=== PATIENT | female | born 2000 | race Caucasian/White ===

== ENCOUNTER 2022-08-15 11:39 | Outpatient (CLI) | payer MEDICAID, SELFPAY ==
--- NOTE | ~2022-08-15 | US_ITS ---
US breast RT limited DATE: 08/15/2022 12:39 INDICATION: Right breast lump TECHNIQUE: Real-time imaging and color flow imaging targeted at right breast lump at 8:00 2 cm from n ipple COMPARISON: None FINDINGS: There is a parallel circumscribed hypoechoic solid lesion with peanut-shaped configuration, measuring up to approximately 1.47 x 2.9 cm maximal dimension, with no internal vascularity, with th rough transmission posterior enhancement, most consistent with benign fibroadenoma. IMPRESSION: Approximately 1.5 x 2.9 cm benign-appearing fibroadenoma at 8:00 2 cm from nipple BI-RADS Category 2: Benign finding Reviewed, dictated and finalized at Location [facility]. Reviewed, dictated and finalized at location A. 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
== END 2022-08-15 11:40 | disposition home or self-care (01) ==
LOC: ANHIMG 11:45
PROVIDERS: Visit Provider Advanced Practice Midwife
DX: N63.10 Unspecified lump in the right breast, unspecified quadrant (principal)
CPT/HCPCS: 76642

== ENCOUNTER 2022-12-09 11:12 | Outpatient (CLI) | payer OTHER, SELFPAY ==
--- NOTE | 2022-12-09 11:55 | PC.NURSE ---
Santos Romo notified that ROM plus is negative. OK to dc home with labor precautions and keep IOL date for Mon.
[2022-12-09 12:27] VITALS: BP 127/78; PULSE 105
== END 2022-12-09 11:55 | disposition home or self-care (01) ==
LOC: ANHOBOP 11:48
PROVIDERS: PCP Advanced Practice Midwife; Visit Provider Obstetrics & Gynecology
DX: O42.90 Premature rupture of membranes, unspecified as to length of time between rupture and onset of labor, unspecified weeks of gestation (principal); Z3A.00 Weeks of gestation of pregnancy not specified
CPT/HCPCS: 59025; 84112

== ENCOUNTER 2022-12-11 16:57 | Inpatient (IN) | payer OTHER, SELFPAY ==
[2022-12-11] VITALS (16 sets, daily range): BP systolic 100–135; BP diastolic 54–87; PULSE 82–113
--- NOTE | 2022-12-11 16:57 | LDADM ---
This patient, Corazon Go, was admitted to Labor/Delivery/Recovery 103 on 12/11/22 at 16:57. Plans for labor, pain management and were discussed with patient. Patient/family oriented to hospital policies and general routines including ID bracelet, bed and alarms, visiting hours, pain management, procedures, bathroom and other care routines, personal items, smoking policy, room service/diet and guest tray routines, security routines, and visiting hours. Patient/Family are encouraged to report perceived risks to care and to ask questions if they do not understand what they are told or what they should do. See OBIX for further documentation.
--- NOTE | 2022-12-11 17:33 | WPDANESEPP ---
Anes - Eval Pre Procedure Procedure: labor epidural Date/Time: 12/11/22 17:33 Pre Op Diagnosis: IOL Patient Data Age: 22 Gender: F Height: Weight: Allergies Allergy/AdvReac Type Severity Reaction Status Date / Time No Known Allergies Allergy Verified 11/11/22 12:39 Home Medications Medication Instructions Recorded Confirmed Type prenat.vits,tiny,ljg-roep-xujan 1 tablet PO DAILY 11/11/22 11/11/22 History Patient hx anesthesia problems: none Family hx anesthesia problems: none Results Review: All pre-operative results and documents have been reviewed as part of the pre-operative evaluation. [facility] Family History Family History Other Patient denies significant medical history Social History Social History Substance use: never Spiritual care concerns: No Exam Day of Procedure 12/11/22 17:33 Patient weight: overweight Heart: regular rate and rhythm Lungs: clear to auscultation Airway: Mallampati scale Neurological: alert and oriented
[2022-12-11 18:27] LABS: Basophils Absolute Auto 0.1 K/mm3 (0.0-0.1); Basophils Percent Auto 0.6 % (0.2-1.2); Eosinophils Absolute Auto 0.1 K/mm3 (0-0.3); Eosinophils Percent Auto 0.9 % (0-4.4); Hemoglobin 10.2 g/dL (12.0-15.0); Immature Granulocyte Absolute 0.54 K/mm3 (0.00-0.031); Immature Granulocyte Percent A 4.3 % (0-0.5); Lymphocytes Absolute Auto 2.31 K/mm3 (0.9-3.2); Lymphocytes Percent Auto 18.2 % (18.3-44.2); Mean Corpuscular HGB Conc 31.9 g/dl (32-36); Mean Corpuscular Hemoglobin 25.8 pg (26-34); Mean Platelet Volume 11.2 fl (7.4-10.4); Monocytes Percent Auto 7.6 % (2.6-8.5); Neutrophils Absolute Auto 8.7 K/mm3 (1.3-6.7); Neutrophils Percent Auto 68.4 % (45.5-73.1); Platelet Count Result 195 k/mm3 (150-375); Red Blood Count 3.95 M/mm3 (4.2-5.4); Red Cell Distribution Width 13.5 % (11.5-14.5); White Blood Count 12.7 K/mm3 (4.5-10.0)
[2022-12-11] MEDS: CALCIUM CARBONATE (TUMS) 500 MG (200 MG ELEMENTAL) PO ×2 (18:29→23:22)
[2022-12-11] MEDS: ONDANSETRON INJ 4 MG/2 ML VIAL IV PUSH (18:30)
[2022-12-11] MEDS: DINOPROSTONE 10 MG VAG INSERT VAGINAL (19:45)
[2022-12-12] VITALS (239 sets, daily range): BP systolic 73–207; BP diastolic 37–181; PULSE 42–241; RESP 18; TEMP 36.2–36.9; O2SAT 86–100; BMI 33.0
[2022-12-12] MEDS: ACETAMINOPHEN 325 MG TABLET PO (05:28)
--- NOTE | 2022-12-12 05:39 | OBADM ---
This patient, Corazon Go, admitted to the OB room Labor/Delivery/Recovery 103 for observation. Patient/family oriented to hospital policies and general routines including ID bracelet, bed and alarms, visiting hours, pain management, procedures, bathroom and other care routines, personal items, smoking policy, room service/diet, and visiting hours. Patient/Family are encouraged to report perceived risks to care and to ask questions if they do not understand what they are told or what they should do.
--- NOTE | 2022-12-12 07:34 | WPDOBADMIT ---
Obstetrics - Admit Note Admission Note: record reviewed. No pertinent additions to the history and/or any subsequent changes in the physical findings that are not consistent with the expected course of the were found. IOL, SVE 1.5/80/-2 AROM , moderate amount of clear, odorless fluid, IUPC placed, anticipate vaginal delivery Additions to the history and/or subsequent changes in the physical findings follow. None.
[2022-12-12] MEDS: LACTATED RINGERS 1,000 ML 125 ML IV CONT ×2 (07:50→09:07)
[2022-12-12] MEDS: SODIUM CHLORIDE 0.9% IV 300 ML 600 ML I-UTERINE (09:42)
[2022-12-12] MEDS: SODIUM CHLORIDE 0.9% IV 1,000 ML 150 ML I-UTERINE (10:12)
[2022-12-12] MEDS: ONDANSETRON INJ 4 MG/2 ML VIAL IV PUSH (10:51)
[2022-12-12 13:15] LABS: Rapid Plasma Reagin Non-Reactive (NonReactive)
[2022-12-12] MEDS: CALCIUM CARBONATE (TUMS) 500 MG (200 MG ELEMENTAL) PO (15:00)
[2022-12-12] MEDS: diphenhydrAMINE HCl INJ 50 MG/ML VIAL 25 MG IV PUSH (16:18)
[2022-12-12] MEDS: OXYTOCIN 30 UNITS/NS 500 ML 30 UNITS/500 ML BAG IV CONT (17:40)
--- NOTE | 2022-12-12 20:36 | P.PCNOB_ITS ---
OB - Delivery Note Procedure Delivery date: 12/12/22 Procedure: vaginal delivery Induction method: AROM, Per Pitocin Protocol and Per Cervidil Protocol Route of delivery: Laceration Description: Superficial Delivery repair: vicryl (on perineum) Specimen: No Quantitative Blood Loss (ml): 350 Anesthesia type: Epidural Disposition: Floor [place] Baby Date of : 12/12/22 Time of : 20:23 Weeks of gestation at delivery: 40 Infant gender: Male presentation: vertex position: Left Occiput Anterior Placenta delivery description: Spontaneous Cord Vessel Description: 3 Vessels, Clamped/Cut and Delayed Cord Clamping Narrative: mother and baby skin to skin in stable condition
[2022-12-12] MEDS: OXYTOCIN 30 UNITS/NS 500 ML 30 UNITS/500 ML BAG 125 UNITS IV CONT (21:01)
[2022-12-12] MEDS: WITCH HAZEL 40 PADS 1 PAD TOPICAL (22:24)
[2022-12-12] MEDS: BENZOCAINE 20% AER SPR (*SP) 56 GM CAN 1 SPRAY TOPICAL (22:24)
--- NOTE | 2022-12-12 22:48 | PC.NURSE ---
Patient transferred to post room # 282 via ( W/C ). Support person present. Oriented to unit, room, information board, rooming in, admission packet and security measures. Patient verbalizes understanding.
[2022-12-12] MEDS: IBUPROFEN 600 MG TABLET PO (23:07)
[2022-12-13] MEDS: ACETAMINOPHEN 325 MG TABLET 650 MG PO ×2 (04:34→13:41)
[2022-12-13 05:10] VITALS: BP 130/82; PULSE 115; RESP 16; TEMP 36.8; O2SAT 98
[2022-12-13 07:27] LABS: Hematocrit 28.8 % (37.0-47.0); Hemoglobin 8.9 g/dL (12.0-15.0)
[2022-12-13 07:40] VITALS: BP 115/80; PULSE 99; RESP 18; TEMP 36.6; O2SAT 99
--- NOTE | 2022-12-13 07:58 | WPDANLDPN2 ---
Anes-Prog Note L&D Date/Time: 12/13/22 07:58 Neuro status: Neuro function grossly intact. Vital Signs: Last Vital Signs Temp 36.8 C 12/13/22 05:10 Pulse 115 H 12/13/22 05:10 Resp 16 12/13/22 05:10 BP 130/82 12/13/22 05:10 Pulse Ox 98 12/13/22 05:10 O2 Del Method Room Air 12/12/22 23:13 Pain score (VAS): 0 I/O: Intake & Output 12/12/22 12/12/22 12/13/22 15:59 23:59 07:59 Intake Total 1000 500 Output Total 350 Balance 1000 150 Patient feedback: Patient satisfied with anesthetic care.
--- NOTE | 2022-12-13 08:39 | PM.OBPNVD ---
OB - PN: Subj Subjective Date/time seen: 12/13/22 08:39 Patient comments: no complaints, pain well controlled, incisional pain, tolerating diet and flatus present OB - PN: Obj Data Labs 12/13/22 07:18 Labs: Laboratory Results - last 24 hr 12/11/22 12/13/22 18:23 07:18 Hgb 8.9 L Hct 28.8 L RPR Non-reactive OB - PN A/P Plan day: 1 Plan: routine care Comments: No problems, routine care Time Spent With Patient Time: Total time spent is greater than 50% in coordination of care (as documented) at patient's floor/unit and/or counseling patient: Exam Const: General: comfortable, no acute distress and alert Resp: Effort & Inspection: normal respiratory effort Auscultation: no crackles, no rales and no rhonchi Cardio: Rate: regular rate Heart sounds: no click, no murmurs and no rubs GI: Inspection: non-distended GI Palp: No Tenderness to palpation present (GI) Auscultation: normal bowel sounds Other: Incision - CDI Extrem: General: normal to inspection, no pedal edema and no calf tenderness
[2022-12-13] MEDS: DOCUSATE SODIUM 100 MG CAPSULE PO ×2 (09:44→16:55)
[2022-12-13] MEDS: IBUPROFEN 600 MG TABLET PO ×2 (09:44→16:56)
[2022-12-13] MEDS: POLYSACCHARIDE IRON COMPLEX 150 MG CAPSULE PO ×2 (09:44→16:55)
[2022-12-13] MEDS: MULTIVIT/MIN/PREN/FOL AC/IRON TABLET 1 TAB PO (09:44)
[2022-12-13 12:28] VITALS: BP 117/78; PULSE 89; RESP 18; TEMP 36.6; O2SAT 99
--- NOTE | 2022-12-13 16:05 | PC.NURSE ---
[id number] Introductions were made, then consulted with patient to assess needs related to . Mother led the conversation with her?plans to feed?her infant and the?experience so far. Resources provided for inpatient and outpatient services with the mom/baby guide and name written on the white board. Mother verbalizes she is able to independently latch with appropriate positioning/alignment. She denies any nipple discomfort and is responsively . Infant is currently meeting outcomes for weight, output, jaundice and feeding frequencies of 8-12 times in 24 hours. Mother declines any additional assistance/education at this time describing effective with no pain. Mother is encouraged to call for assistance if her infant doesn?t latch or there is discomfort with latching. Reported to the primary RN.
[2022-12-13 16:56] VITALS: BP 119/73; PULSE 85; RESP 18; TEMP 36.6; O2SAT 99
[2022-12-13 20:30] VITALS: BP 112/71; PULSE 94; RESP 16; TEMP 36.8; O2SAT 99
[2022-12-14] MEDS: ACETAMINOPHEN 325 MG TABLET 650 MG PO (01:38)
--- NOTE | 2022-12-14 07:44 | PM.OBPNVD ---
OB - PN: Subj Subjective Date/time seen: 12/14/22 07:44 s/p vaginal delivery day 2 doing well OB - PN: Obj Data Labs 12/13/22 07:18 OB - PN A/P Plan day: 2 Plan: routine care and discharge home Time Spent With Patient Time: Total time spent is greater than 50% in coordination of care (as documented) at patient's floor/unit and/or counseling patient: Review of Systems Review of Systems: All systems reviewed & are unremarkable except as noted in HPI and below Exam Const: General: cooperative and healthy appearing Resp: Effort & Inspection: normal respiratory effort Cardio: Rate: regular rate Rhythm: regular rhythm Skin: General skin exam: normal color Psych: Appearance: grossly normal
--- NOTE | 2022-12-14 07:47 | P.DS_ITS ---
DS: Admitting Diagnosis Discharge Date 12/14/22 Admitting Diagnosis IOL DS: Discharge Diagnosis Discharge Diagnosis (1) Vaginal delivery: Code(s): O80 - Encounter for full-term uncomplicated delivery Status: Acute OB - DS: Summary OB Procedures : None OB Procedures Intrapartum: Spontaneous Vag Delivery OB Procedures: : None Time Spent with Patient Time attestation: Total time spent providing and/or coordinating discharge services: Discharge Plan Discharge Attending physician on discharge: Sandip Peterson Discharging Clinician: Christal Romo Patient Disposition: Home, Self-Care Activity: pelvic rest Diet: regular Patient Instructions: Antibiotic Form Stand Alone Forms: General Discharge Information Follow-up/Referrals: Christal Romo CNM [Certified Nurse Pay Station Department Manager] - 4 Weeks Discharge Medications: New ibuprofen 600 mg Tablet 600 mg PO Q6H PRN (Reason: Cramping) Qty: 30 0RF Continued #2 Tablet 1 tablet PO DAILY Date of admission: 12/11/22 16:57 Primary Care Provider: Abby Palmer Admitting Provider: Sandip Peterson Attending physician on admission: Sandip Peterson Condition: Stable
[2022-12-14 08:26] VITALS: BP 121/66; PULSE 84; RESP 18; TEMP 36.7; O2SAT 100
[2022-12-14] MEDS: MULTIVIT/MIN/PREN/FOL AC/IRON TABLET 1 TAB PO (09:03)
[2022-12-14] MEDS: POLYSACCHARIDE IRON COMPLEX 150 MG CAPSULE PO (09:03)
[2022-12-14] MEDS: DOCUSATE SODIUM 100 MG CAPSULE PO (09:03)
[2022-12-14] MEDS: IBUPROFEN 600 MG TABLET PO (09:04)
[2022-12-16 11:55] VITALS: BP 140/95; PULSE 102; RESP 20; TEMP 36.8
== END 2022-12-14 11:30 | disposition home or self-care (01) | DRG 560 ==
LOC: ANHLDR 17:04 → ANHOB2 12-12 22:51
PROVIDERS: Advanced Practice Midwife; Admitting Provider Obstetrics & Gynecology; PCP Advanced Practice Midwife; Visit Provider Obstetrics & Gynecology
DX: O70.0 First degree perineal laceration during delivery (principal); Z37.0 Single live birth; Z3A.40 40 weeks gestation of pregnancy
CPT/HCPCS: 36415; 85014; 85018; 85025; 86592; 86850; 86900; 86901; A9270; J1200; J2405; J2590; J2795; J7030; J7120

== ENCOUNTER 2023-05-02 01:40 | Day surgery (SDC) | payer OTHER, SELFPAY ==
[2023-04-18 11:08] VITALS: BMI 28.3
--- NOTE | 2023-04-18 11:18 | PC.NURSE ---
Report to the Outpatient Waiting Room, entrance under the green pavilion located off [facility], at 1200 on 05/02/23. Planned Procedure Time: 1400. Time changes happen often and if your time is changed the preop area will call you the afternoon before. - You and your visitor will be asked to self-screen and do not enter if you have any COVID symptoms. - A mask is optional within the hospital at this time. Patients may have clear liquids (water, carbonated beverages, clear teas, apple juice) until 3 hours prior to surgery with a maximum of 20 ounces. - No food from midnight until time of surgery Take the following medications with a SIP of water the morning of surgery: control pill DO NOT STOP ANY OF YOUR OTHER PRESCRIPTION MEDICATIONS PRIOR TO SURGERY ?EXCEPT THE FOLLOWING Medications to discontinue per physician N/A Date to take last dose N/A Please no make-up, nail andorran, hairspray, perfume, deodorant, or body powder the day of surgery. No jewelry (including any body piercings) or valuables the day of surgery, leave them at home. Please take a shower or bath the night before, or the morning of, surgery with an antibacterial soap. Wear comfortable, loose fitting clothing. - Jewelry must be removed prior to entering the operating room. Rings and piercings that are not removed may be cut off. - The hospital will not accept responsibility for valuables. - Please leave all valuables, including medications, at home the day of surgery. If you are going home after surgery, a licensed tow driver must drive you home. - NO public transportation without another adult if you receive anesthesia. - We recommend that an adult stay with you for 24 hours following discharge. - We also recommend that you do not drive, make important decision, drink alcoholic beverages, or take any drugs that were not prescribed by your health care provider for at least 24 hours after your discharge time. Follow any additional instructions given to you from your surgeon. If you or anyone in your household have experienced Covid symptoms in the past week, please notify your surgeon or the nurse liaison at the phone number below for possible testing. Telephone instructions given to patient and asked if any additional questions and then verbalized understanding. Patient advised to call surgeon office or pre surgery nurse liaison [phone] if any additional questions.
--- NOTE | 2023-05-01 17:41 | PM.IMHP ---
H&P: HPI History of Present Illness Date/Time: 05/01/23 17:41 Chief Complaint: Snoring adenoid hypertrophy recurrent tonsillitis Narrative: planned procedure Review of Systems Review of Systems: All systems reviewed & are unremarkable except as noted in HPI and below PMFSH Past Medical History Medical History Anxiety Family History Family History Father Diabetes mellitus Other Patient denies significant medical history Social History Social History (Updated 03/01/23 @ 09:17 by Jodi Ayala CMA) Social History: Caffeine-Coffee daily Smoking status: Former smoker Tobacco type: e-cigarettes/vaping Smoking end date: 04/18/21 Additional smoking assessment comments: vaped 2 years Alcohol intake: current Drinks per week: 2 Substance use: former Substance use type: marijuana Other substance usage details: stopped long time ago Lack of Transportation: No Lack of Food: Never True Current Housing: I Have Housing Concerned About Future Housing: No Difficulty Paying Gas/Electric Bills: No Difficulty Paying for Meds: No Currently Unemployed: No Education: High School Diploma/GED Difficulty w/ Childcare or Family Care: No Living arrangements: with family Spiritual care concerns: No Meds Home Medications and Allergies Home Medications Medication Instructions Recorded Confirmed Type drospirenone (contraceptive) 4 mg 1 tablet PO DAILY 02/13/23 04/18/23 History (28) tablet (Slynd) Allergies Allergy/AdvReac Type Severity Reaction Status Date / Time No Known Allergies Allergy Verified 04/18/23 11:08 Exam Narrative: chronic appearing tonsils large adenoids Assessment and Plan Assessment and plan (1) Adenoid hypertrophy: Code(s): J35.2 - Hypertrophy of adenoids Status: Acute Assessment and Plan: plan OR adenoidectomy tonsillectomy.? Risks were discussed including bleeding infection damage to surrounding structures damage to any structure with the clavicle by myself damage to any structure during the induction and maintenance of anesthesia including vocal cord paralysis.? Need for further procedures postoperative bleeding 3-5% chance.? Damage to jaw damage to TMJ change in swallow change in taste which could be permanent.? Patient voiced understanding of these risks and agreed. (2) Snoring: Code(s): R06.83 - Snoring Status: Acute (3) Recurrent tonsillitis: Code(s): J03.91 - Acute recurrent tonsillitis, unspecified Status: Acute
[2023-05-02] VITALS (7 sets, daily range): BP systolic 120–158; BP diastolic 67–94; PULSE 77–126; RESP 12–19; TEMP 36.3–37; O2SAT 97–100
--- NOTE | 2023-05-02 07:16 | WPDHPUPDATE1 ---
History and Physical Update Update Date/Time: 05/02/23 07:16 History and Physical has been reviewed, including an updated exam of the patient. There are NO changes in the patient's condition. Risks, benefits, and alternatives have been discussed and questions answered. Patient agrees to proceed with procedure.
--- NOTE | 2023-05-02 12:49 | SUR.PREOP ---
Informed patient and sig other that OR is running at least an hour behind.
--- NOTE | 2023-05-02 13:40 | P.PNAN_ITS ---
Anes - Initial Pre Proc Eval Procedure: Operation Date: 05/02/23 14:00 Proposed Procedures p Tonsillectomy And Adenoidectomy - Brooks Moses MD Date/Time: 05/02/23 13:40 Surgeon: Brooks Moses MD Pre Op Diagnosis: hypertrophic tonsils and adenoids Patient Data Age: 22 Gender: F Height: 1.63 m Weight: 80.6 kg Last Vital Signs Temp 37.0 C 05/02/23 12:29 Pulse 103 H 05/02/23 12:29 Resp 16 05/02/23 12:29 BP 140/88 05/02/23 12:29 Pulse Ox 97 05/02/23 12:29 O2 Del Method Room Air 05/02/23 12:29 Allergies Allergy/AdvReac Type Severity Reaction Status Date / Time No Known Allergies Allergy Verified 05/02/23 11:59 Home Medications Medication Instructions Recorded Confirmed Type drospirenone (contraceptive) 4 mg 1 tablet PO DAILY 02/13/23 04/18/23 History (28) tablet (Slynd) Patient hx anesthesia problems: none Family hx anesthesia problems: none Results Review: All pre-operative results and documents have been reviewed as part of the pre- operative evaluation. [facility] Past Medical History Medical History (Updated 05/02/23 @ 13:40 by Deondre Monterroso DO) Anxiety Endometriosis Family History Family History Father Diabetes mellitus Other Patient denies significant medical history Social History Social History (Updated 03/01/23 @ 09:17 by Jodi Ayala CMA) Social History: Caffeine-Coffee daily Smoking status: Former smoker Tobacco type: e-cigarettes/vaping Smoking end date: 04/18/21 Additional smoking assessment comments: vaped 2 years Alcohol intake: current Drinks per week: 2 Substance use: former Substance use type: marijuana Other substance usage details: stopped long time ago Lack of Transportation: No Lack of Food: Never True Current Housing: I Have Housing Concerned About Future Housing: No Difficulty Paying Gas/Electric Bills: No Difficulty Paying for Meds: No Currently Unemployed: No Education: High School Diploma/GED Difficulty w/ Childcare or Family Care: No Living arrangements: with family Spiritual care concerns: No Anes - Eval Final PreProcedure Day of Procedure 05/02/23 13:40 Patient weight: obese Heart: regular rate and rhythm Lungs: clear to auscultation Airway: Mallampati scale class II Neurological: alert and oriented Last oral intake: >/= 8 hours ASA classification: II Emergent: no Anesthetic plan: proceed Anesthesia type and monitoring: general ETT and standard monitoring Results Review: All pre-operative results and documents have been reviewed as part of the pre- operative evaluation. Informed Consent: The patient's anesthetic plan and its attendant risks and benefits were discussed with the patient/family/POA. Questions were solicited and answers provided to the satisfaction of the patient/family/POA.
[2023-05-02] MEDS: ACETAMINOPHEN 500 MG TABLET 1000 MG PO (14:15)
[2023-05-02] MEDS: LACTATED RINGERS 1,000 ML 30 ML IV CONT ×2 (17:48→17:50)
[2023-05-02] MEDS: fentaNYL CITRATE INJ (*CRX) 100 MCG/2 ML VIAL 25 MCG IV PUSH ×4 (18:03→18:15)
--- NOTE | 2023-05-02 18:03 | W.PM.PROC2 ---
Procedure Note - Detailed Date of Procedure 05/02/23 Pre-op Diagnosis Recurrent tonsillitis Post-op Diagnosis Same Procedure Performed Tonsillectomy Surgeon Brooks Moses MD Anesthesia General Indications See above Findings Absent adenoids really scarred in tonsils lot of stones and purulence within the Description of Procedure Patient identified consent verified in the preoperative holding area. Patient brought to the operating room. Time-out performed. General anesthesia induced endotracheal tube secured. Patient prepped draped position procedure confirmed a 2nd time-out performed. McIvor mouth gag inserted to reveal tonsils described above. They were removed bilaterally in the extracapsular plane using Bovie electrocautery at a setting of 8. Any bleeding was controlled with bipolar setting of 10 and Bovie suction electrocautery setting of 10. In between tonsils McIvor mouth gag was lowered to allow blood flow to return to the tongue. Red rubber catheter was then inserted adenoids reviewed absent. Red rubber catheter removed McIvor mouth gag removed. Total blood loss close to 0 cc. Patient tolerated the procedure well no complications. Patient was taken to PACU. Care the patient given back to Anesthesiology. Estimated Blood Loss 1 Drains No Packing No Pathology Yes Complications No immediate complications Condition Stable Disposition PACU [facility] Billing Surgery - Charge Forward: Surgery Billing
--- NOTE | 2023-05-02 18:13 | SUR.PHASEI ---
1811: Simple mask removed.
[2023-05-02] MEDS: oxyCODONE HCL (*CRX) 5 MG TAB IR PO (18:49)
== END 2023-05-02 19:26 | disposition home or self-care (01) ==
PROVIDERS: PCP Nurse Practitioner; Visit Provider Otolaryngology
PROC: (CPT 42826; principal; 2023-05-02 14:00)
DX: J03.91 Acute recurrent tonsillitis, unspecified (principal); Z87.891 Personal history of nicotine dependence; E66.9 Obesity, unspecified; Z68.30 Body mass index [BMI] 30.0-30.9, adult; R06.83 Snoring
CPT/HCPCS: 42826; 88302; A9270; J0330; J1100; J2250; J2405; J2704; J3010; J7120

== ENCOUNTER 2024-09-22 13:05 | Emergency (ER) | payer OTHER, SELFPAY ==
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
--- OUTSIDE RECORDS SUMMARY | 2024-09-22 13:09 | XMS_ITS | Encounter Summary ---
Author Organization [facility] Address [address] [place] [address] Phone Care Team Providers Care Lineman Name Role Phone No, Physician Primary Care Provider [phone] Yamile Asif NP Primary Care Provider [phone] Abby Palmer ICE CREAM CHEF Unavailable Soha Clifton ICE CREAM CHEF Primary Care Provider [phone] Encounter Details Date Type Department Care Team (Latest Contact Info) Description 07/04/2019 Orders Only [facility] Scanning, Provider Social History Tobacco Use Types Packs/Day Years Used Date Smoking Tobacco: Never Comments Unknown Sex and Gender Information Value Date Recorded Sex Assigned at Not on file 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 Gender Identity Not on file Sexual Orientation Not on file documented as of this encounter Plan of Treatment Not on file documented as of this encounter Procedures Procedure Name Priority Date/Time Associated Diagnosis Comments CARDIOLOGY DOCUMENT SCAN 07/04/2019 documented in this encounter Results * SCAN - CARDIOLOGY (07/04/2019) Anatomical Region Laterality Modality Other us Provider Scanning [facility] PROCEDURES Final Result documented in this encounter Visit Diagnoses Not on filedocumented in this encounter Care Teams Lineman Relationship Specialty Start Date End Date No, Physician PCP - General 07/04/19 03/04/20 Yamile Asif NP [address] [place] [address] PCP - General Family Medicine 03/05/20 09/07/23 Soha Clifton NP [address] [place] [address] PCP - General Internal Medicine 09/08/23 Abby Palmer NP [address] [place] [address] Referring Physician Nurse Practitioner 08/25/22 documented as of this encounter
--- OUTSIDE RECORDS SUMMARY | 2024-09-22 13:09 | XMS_ITS | Clinical Summary ---
Author Organization [facility] Address [address] [place] [address] Care Team Providers Care Wireline Operator Name Role Phone Estela Abby HOWE Unavailable Soha Clifton NP Primary Care Provider [phone] Allergies Active Allergy Reactions Criticality Noted Date Comments Venom-Honey Bee Other (See comments) Low 06/18/2015 Localized swelling Medications amoxicillin (AMOXIL) 875 mg tablet Take 875 mg by mouth 2 (two) times a day Active etonogestrel (NEXPLANON) 68 mg implantIndications : Contraception Active norethindrone (MICRONOR) 0.35 mg tablet Take 1 tablet (0.35 mg total) by mouth daily 4 Active Active Problems Problem Noted Date Diagnosed Date Anemia 12/05/2022 Overview (10/07/2023): slowfe 1 tab BID Hypoglycemia 09/22/2022 Overview (10/07/2023): precautions given Acne 05/26/2017 Overview (09/08/2023): Onset age 15, menses at age 13, now regular with no notable flares with cycle, denies cystic lesions; prior use of BP products; Dad with h/o acne, not severe 05/26/17: Rx tretinoin Skin eruption 06/18/2015 Overview (09/08/2023): 12/10/15 localized ACD vs psoriasis vs LP; 6 wk trial empiric clobetasol + wet wraps. 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 Gender Identity Not on file Sexual Orientation Not on file Obstetrics History Last Filed Vital Signs Vital Sign Reading Time Taken Comments Blood Pressure 122/76 09/08/2023 2:15 PM CASE SUPERVISOR Pulse 123 10/07/2023 4:46 PM CDT Temperature 36.3 C (97.4 F) 10/07/2023 4:46 PM CDT Respiratory Rate 18 10/07/2023 4:46 PM CDT Oxygen Saturation 99% 10/07/2023 4:46 PM CDT Inhaled Oxygen Concentration - - Weight 81.6 kg (180 lb) 10/07/2023 4:46 PM CDT Height 162.6 cm (5' 4 ) 10/07/2023 4:46 PM CDT Body Mass Index 30.9 10/07/2023 4:46 PM CDT Plan of Treatment Health Maintenance Due Date Last Done Comments Cervical Cancer Screening 2000 Depression Screening 2000 Hepatitis C Screening 2000 DTaP/Tdap/Td Vaccine (1 - Tdap) 10/28/2011 Varicella Vaccines (1 of 2 - 13+ 2-dose series) 2013 HPV Vaccines (1 - 3-dose series) 10/28/2015 Meningococcal B Vaccine (1 o f 2 - Standard) 2016 Hepatitis B Screening 2018 Regular Well Visit/Exam 18-64 2018 Influenza Vaccine (#1) 2024 Pneumococcal vaccine <65 Aged Out No longer eligible based on patient's age to complete this topic Insurance [facility] Care Teams Wireline Operator Relationship Specialty Start Date End Date Soha Clifton NP [address] [place], [place] [id number] PCP - General Internal Medicine 09/08/23 Abby Palmer NP [address] [place] [address] Referring Physician Nurse Practitioner 08/25/22
--- OUTSIDE RECORDS SUMMARY | 2024-09-22 13:09 | XMS_ITS | Data Portability ---
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 Plan of Treatment Reminders Order Date Submit Date Provider Last Modified By Organization Details Last Modified Time Details Appointments None recorded. Lab unlisted lab - [facility] swab plus, CORY 2023 024 [facility] (Lab), [address], [place], [address], 4 13:36:51 unlisted lab - [facility] swab, CORY 2023 024 [facility] (Lab), [address], [place], [address], 4 12:52:45 Referral None recorded. Procedures None recorded. Surgeries None recorded. Imaging US, obstetric, transvagina l 2023 024 [email or web address] [place], [address], [place], [address], 4 13:30:56 Medication Orders NuvaRing 0.12 mg-0.015 mg/24 hr vaginal 2023 [facility], [place], [address], 4 22:24:32 fluconazole 150 mg tablet 2023 024 [facility] [address], [place], [address], 4 14:55:29 metronidazo le 0.75 % (37.5 mg/5 gram) vaginal gel 2023 024 [facility] [address], [place], [address], 4 17:24:04 Cytotec 200 mcg tablet 2023 024 [facility] [address], [place], [address], 4 16:56:09 Patient TargetsNo targets recorded. Patient InstructionsNo instructions recorded. Reason for Referral None Reported. Results Created Date Observation Date Name Description Value Unit Range Abnormal Flag Note LastModifiedBy Organization Detail LastModifiedTime 03/14/2003/14/2024 BHCG, QUANT ITATI VE B-HCG 6.0 mIU/m L This assay was perfo rmed using [employer] ratio n reage nts and test kits. Value s obtai candie with other assay metho ds or kits canno t be used inter rousseau eably . Refer ence Range s: Non-p regna nt, preme nopau cisco women : 0.0-5 .3 mIU/m L Postm enopa usal women : 0.0-7 .0 mIU/m L Nicolasa l Pregn cr: Gesta silvana l Age bHCG Conc. - mIU/m L 3 Weeks 5.8 - 71.7 4 Weeks 9.5 - 750 5 Weeks 217-7 138 6 Weeks 158 - 31,79 5 7 Weeks 3,697 - 162,5 63 8 Weeks 32,06 5 - 149,5 71 9 Weeks 63,80 3 - 151,4 10 10 Weeks 46,50 9 - 186,9 77 12 Weeks 27,83 2 - 210,6 12 14 Weeks 13,95 0 - 62,53 0 15 Weeks 12,03 9 - 70,97 1 16 Weeks 9,040 - 56,45 1 17 Weeks 8,175 - 55,86 8 18 Weeks 8,099 - 58,[address] [facility] (Lab) [address], [place], [address], 03/15/2024 05:36:42 03/22/20 24 03/22/2024 BHCG, QUANT ITATI VE B-HCG 2.1 mIU/m L This assay was perfo rmed using [employer] n reage nts and test kits. Value s obtai candie with other assay metho ds or kits canno t be used inter rousseau eably . Refer ence Range s: Non-p regna nt, preme nopau cisco women : 0.0-5 .3 mIU/m L Postm enopa usal women : 0.0-7 .0 mIU/m L Nicolasa l Pregn cr: Gesta silvana l Age bHCG Conc. - mIU/m L 3 Weeks 5.8 - 71.7 4 Weeks 9.5 - 750 5 Weeks 217-7 138 6 Weeks 158 - 31,79 5 7 Weeks 3,697 - 162,5 63 8 Weeks 32,06 5 - 149,5 71 9 Weeks 63,80 3 - 151,4 10 10 Weeks 46,50 9 - 186,9 77 12 Weeks 27,83 2 - 210,6 12 14 Weeks 13,95 0 - 62,53 0 15 Weeks 12,03 9 - 70,97 1 16 Weeks 9,040 - 56,45 1 17 Weeks 8,175 - 55,86 8 18 Weeks 8,099 - 58,[address] [facility] (Lab) [address], [place], [address], 03/23/2024 05:49:29 03/22/20 24 03/22/2024 WOMEN 'S HEALT H SWAB, CORY broderick species, tma Negati ve negati ve Not Available [facility] (Lab) [address] [place], [address], 03/25/2024 12:52:45 03/22/20 24 03/22/2024 WOMEN 'S HEALT H SWAB, CORY broderick glabrata, tma Negati ve negati ve Not Available [facility] (Lab) [address] [place], [address], 03/25/2024 12:52:45 03/22/20 24 03/22/2024 WOMEN 'S HEALT H SWAB, CORY trichomonas vaginalis, tma Positi ve negati ve abnormal This assay tests for and diffe renti ates baronwe en Denise da glabr irlanda, the Denise da speci es group (C. albic ans, C. tropi calis , C. parap arnol is, C. dubli niens is), and Trich omona s vagin diane by Trans cript ion-M ediat ed Ampli ficat ion (TMA) . Not Available [facility] (Lab) [address], [place], [address], 03/25/2024 12:52:45 03/22/20 24 03/22/2024 WOMEN 'S HEALT H SWAB, CORY bacterial vaginosis (bv), tma Negati ve negati ve This test detec ts ribos omal RNA from bacte maxine assoc iated with bacte rial vagin osis (BV), inclu ding Lacto bacil johnathan (L. gasse ri, L. crisp atus and L. jense krystian), Gardn erell a vagin diane, and Atopo bium vagin ae by Trans cript ion-M ediat ed Ampli ficat ion (TMA) . A singl e quali tativ e resul t is repor yanick based on instr ument softw are to deter mine BV posit ira or negat ira statu s. Not Available [facility] (Lab) [address], [place], [address], 03/25/2024 12:52:45 03/26/20 24 03/26/2024 WOMEN 'S HEALT H SWAB PLUS, CORY bacterial vaginosis (bv), tma Negati ve negati ve Not Available [facility] (Lab) [address], [place], [address], 03/27/2024 13:36:51 03/26/20 24 03/26/2024 WOMEN 'S HEALT H SWAB PLUS, CORY broderick species, tma Negati ve negati ve Not Available [facility] (Lab) [address] [place], [address], 03/27/2024 13:36:51 03/26/20 24 03/26/2024 [facility], CORY broderick glabrata, tma Negati ve negati ve Not Available [facility] (Lab) [address], [place], [address], 03/27/2024 13:36:51 03/26/20 24 03/26/2024 [facility] SWAB PLUS, CORY trichomonas vaginalis, tma Positi ve negati ve abnormal Not Available [facility] (Lab) [address], [place], [address], 03/27/2024 13:36:51 03/26/20 24 03/26/2024 [facility] SWAB PLUS, CORY chlamydia trachomatis, PCR Negati ve negati ve Not Available [facility] (Lab) [address] [place], [address], 03/27/2024 13:36:51 03/26/20 24 03/26/2024 [facility] SWAB PLUS, CORY neisseria gonorrhoeae, PCR Negati ve negati ve Bacte rial vagin osis detec ts the follo wing bacte maxine assoc iated with bacte rial vagin osis (BV): Lacto bacil johnathan (L. gasse ri, L. crisp atus and L. jense krystian), Gardn erell a vagin diane, and Atopo bium vagin ae. A singl e quali tativ e resul t is repor yanick base on instr ument softw are to deter mine BV posit ira or negat ira statu s. The Denise da speci es group tests for C. albic ans, C. tropi calis , C. parap arnol is, C. dubli ni is. Testi ng is perfo rmed using the Trans cript ion Media yanick Ampli ficat ion metho d. Tests for Denise da glabr irlanda, Trich omona s vagin diane, Chlam ydia trach omati s, and Neiss eria gonor rhoea e are also inclu ded in this panel . Not Available [facility] (Lab) [address], [place], [address], 03/27/2024 13:36:51 02/07/20 24 02/07/2024 US, obste tric, trans vagin al No observ ation record ed. [email or web address] [place] [address], [place], [address], 02/07/2024 13:22:43 02/07/20 24 02/07/2024 US, obste tric, follo w-up No observ ation record ed. [email or web address] [address], [place], [address], 02/07/2024 13:10:16 02/13/20 24 02/13/2024 US, obste tric, trans vagin al No observ ation record ed. [email or web address] [place] [address], [place], [address], 02/13/2024 12:34:08 02/13/20 24 02/13/2024 US, obste tric, trans vagin al No observ ation record ed. [email or web address] [address], [place], [address], 02/14/2024 22:19:27 02/20/20 24 02/20/2024 US, obste tric, trans vagin al No observ ation record ed. [email or web address] [place] [address], [place], [address], 02/20/2024 13:14:41 02/20/20 24 02/20/2024 US, obste tric, trans vagin al No observ ation record ed. [email or web address] [address], [place], [address], 02/21/2024 09:54:52 Result Notes None recorded. Problems Name Problem SNOMED Code Status Onset Date Resolution Date Notes Provider Name and Address Organization Details Recorded Time Pregnanc y 37050086 Completed 202212/23/2022 Ngoc [facility]inn[facility], [facility] 3 15:41:03 Anemia 208883557 Completed 2022 [facility] 3 15:40:57 Hypoglyc emia 468256913 Completed 2022 precautio ns given [facility] 3 15:40:57 Problem Notes None recorded. Procedures Surgical History Date Name Laterality Status Provider Name and Address Organization Details Recorded Time 07/12/19 24 Date of Last Pap Smear completed [facility] 07/12/2023 12:33:15 04/09/20 23 Tonsillectomy completed [facility] 07/12/2023 11:21:24 Imaging Results Imaging Date Name Status LastModified by Organization Details LastModified Time 02/07/2024 US, obstetric, transvaginal completed [email or web address] [place] [address], [place], [address], 02/07/2024 13:22:43 02/07/2024 US, obstetric, follow-up completed [email or web address] [address], [place], [address], 02/07/2024 13:10:16 02/13/2024 US, obstetric, transvaginal completed [email or web address] [place] [address], [place], [address], 02/13/2024 12:34:08 02/13/2024 US, obstetric, transvaginal completed [email or web address] [address], [facility], [place], [address], 02/14/2024 22:19:27 02/20/2024 US, obstetric, transvaginal completed [email or web address] [place] [address], [place], [address], 02/20/2024 13:14:41 02/20/2024 US, obstetric, transvaginal completed [email or web address] [address], [facility], [place], [address], 02/21/2024 09:54:52 Procedure Notes None recorded. Medical Equipment None Reported. Allergies No known drug allergies Medications Name Sig Start Date Stop Date Status Note LastModified by Organization Details LastModified Time fluconazole 150 mg tablet TAKE 1 TABLET BY MOUTH EVERY 72 HOURS active Not Available Not Available No t Available metronidazo le 0.75 % (37.5 mg/5 gram) vaginal gel INSERT 1 APPLICATO RFUL VAGINALLY ONCE DAILY AT BEDTIME FOR 5 DAYS 05/20 completed Not Available Not Available Not Available prednisone 20 mg tablet TAKE 1 TABLET BY MOUTH TWICE DAILY WITH FOOD AT 7AM AND 4PM 07/21 completed Not Available Not Available Not Available metronidazo le 500 mg tablet TAKE 1 TABLET BY MOUTH TWICE DAILY FOR 7 DAYS 05/20 completed Not Available Not Available Not Available benzonatate 100 mg capsule TAKE 2 CAPSULES BY MOUTH THREE TIMES DAILY NEEDED FOR COUGH 07/21 completed Not Available Not Available Not Available misoprostol 200 mcg tablet TAKE 4 TABLETS BY MOUTH active Not Available Not Available No t Available ibuprofen 600 mg tablet TAKE 1 TABLET BY MOUTH EVERY 6 HOURS NEEDED 01/18 completed Not Available Not Available Not Available Anusol-HC 25 mg rectal suppository Insert 1 supposito ry twice a day by rectal route as needed for 14 days. 05/20 completed Not Available Not Available Not Available norethindro ne (contracept ira) 0.35 mg tablet TAKE 1 TABLET BY MOUTH ONCE DAILY 08/17 completed Not Available Not Available Not Available ondansetron 4 mg disintegrat ing tablet DISSOLVE 1 TABLET IN MOUTH EVERY 8 HOURS 07/12 completed Not Available Not Available Not Available oxycodone 5 mg tablet TAKE 1 TABLET BY MOUTH EVERY 8 HOURS NEEDED FOR PAIN 07/12 completed Not Available Not Available Not Available NuvaRing 0.12 mg-0.015 mg/24 hr vaginal Insert 1 vaginal ring every month by vaginal route. 2024 active Not Available Not Available Not Avai lable medroxyprog esterone 150 mg/mL intramuscul ar syringe Inject 1 mL every 3 months by intramusc ular route. 02/19 completed Not Available Not Available Not Available Procto-Med HC 2.5 % topical cream perineal applicator APPLY A THIN LAYER TO THE AFFECTED AREA(S) TWO TO FOUR TIMES DAILY 07/12 completed Not Available Not Available Not Available Slynd 4 mg (28) tablet Take 1 tablet every day by oral route. 07/12 completed Not Available Not Available Not Available Vitals Date Recorded Body height Provider Name an d Address Organization Details Last Updated DateTime 02/20/2024 165.74 cm Shira Muñoz [facility] 02/20/2024 12:59:50 Date Recorded Body height Body mass index (BMI) Body weight Systolic blood pressure Diastolic blood pressure Provider Name and Address Organization Details Last Updated DateTime 03/26/2024 165.74 cm 34.2 kg/m2 06440.62 g 158 mm[Hg] 99 mm[Hg] Kirsten Tomas [facility] 18:07:00 Date Recorded Body height Body mass index (BMI) Body weight Systolic blood pressure Diastolic blood pressure Provider Name and Address Organization Details Last Updated DateTime 05/20/2024 165.74 cm 33.7 kg/m2 16633.84 g 32 mm[Hg] 78 mm[Hg] Laura Castelan [facility] 17:14:01 Social History Question Answer Notes LastModified by Organizat ion Details LastModified Time Tobacco Smoking Status Never Smoker Jennifer [facility] 07/12/2023 10:58:35 What Is Your Level Of Alcohol Consumption? None [email or web address] Information not available 07/21/2022 If You Are , What Was Your Level Of Alcohol Consumption Prior To ? Occasional [email or web address] Information not available 07/12/2023 Are You Blind Or Do You Have Difficulty Seeing? No [email or web address] Information not available 07/21/2022 What Is Your Level Of Caffeine Consumption? Moderate [email or web address] Information not available 07/21/2022 How Much Tobacco Do You Chew? None [email or web address] Information not available 07/21/2022 In The 14 Days Before Symptom Onset, Have You Had Close Contact With A Laboratory-confir med COVID-19 While That Case Was Ill? No [email or web address] Information not available 07/21/2022 In The 14 Days Before Symptom Onset, Have You Had Close Contact With A Person Who Is Under Investigation For COVID-19 While That Person Was Ill? No [email or web address] Information not available 07/21/2022 Have You Been To An Area Known To Be High Risk For COVID-19? No [email or web address] Information not available 07/21/2022 Are You Deaf Or Do You Have Serious Difficulty Hearing? No [email or web address] Information not available 07/21/2022 What Type Of Diet Are You Following? REGULAR [email or web address] Information not available 07/21/2022 Do You Or Have You Ever Used E-cigarettes Or Vape? Former User Of Electronic Cigarettes [email or web address] Information not available 07/12/2023 What Is The Highest Grade Or Level Of School You Have Completed Or The Highest Degree You Have Received? 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 No [email or web address] Information not available 07/21/2022 Do You Use Protection During Sex? No [email or web address] Information not available 07/21/2022 Do You Use Your Seat Belt Or Car Seat Routinely? Yes Information not available 07/21/2022 Do You Have Smoke And Carbon Monoxide Detectors In Your Home? Yes [email or web address] Information not available 07/21/2022 How Much Tobacco Do You Smoke? No [email or web address] Information not available 07/21/2022 Do You Feel Stressed (tense, Restless, Nervous, Or Anxious, Or Unable To Sleep At Night)? [id number] Information not available 07/21/2022 Do You Use Any Illicit Or Recreational Drugs? No [email or web address] Information not available 07/21/2022 Do You Use Sunscreen Routinely? Yes [email or web address] Information not available 07/21/2022 Have You Used IV Drugs? No [email or web address] Information not available 07/21/2022 Do You Or Have You Ever Used Any Other Forms Of Tobacco Or Nicotine? Yes [email or web address] Information not available 07/12/2023 Sex: Unknown Functional Status Question Answer Note LastModified by Organizat ion Details LastModified Time Do you have difficulty walking or climbing stairs? No [email or web address] Information not available 07/12/2023 Are you able to walk? YESWOREST [email or web address] Information not available 07/21/2022 Are you able to care for yourself? Yes [email or web address] Information not available 07/12/2023 Do you have difficulty dressing or bathing? No [email or web address] Information not available 07/12/2023 What is your exercise level? Moderate [email or web address] Information not available 07/21/2022 Mental Status None recorded. Family History Relationship Description Onset Age of this Age Resolved Age Notes LastModified by Organization Details LastModified Time Unspecified Relation Family history unknown [email or web address] Not available 2023 10:58:08 Father Diabetes mellitus [email or web address] Not available 07/21 15:37:08 Paternal Grandmother Malignant tumor of lung [email or web address] Not available 07/21 15:37:19 Medical History Condition Response Allergies (Food, seasonal, environmental ) N Other N Breast Cancer N Drug/Latex Allergies/Reactions N Blood Transfusion N Dermatologic Disorders N Lung Disease N Defects or Inherited Disease N Breast Problem Y Gestational Diabetes N Hematologic disorders N Anesthesia Complications N History of STI N Deep Vein Thrombosis N Polycystic ovary syndrome N Anxiety Disorder N Autoimmune disease N Arthritis N Infertility N Polyps N Acid Reflux (GERD) N History of abnormal pap N Cancer N Stroke N Varicosities N Neurologic/Epilepsy N Endometriosis Y High Cholesterol N Headaches N Fibromyalgia N Kidney Disease N Heart Problems N Kidney or Bladder Problems N Thyroid Problems N GI Problems N Eating Disorder N Anemia N Art (IVF or FET) N Psychiatric Illness N Ovarian Cancer N Diabetes N Pulmonary (TB, Asthma) N Hepatitis/Liver Disease N No Past Medical History N Eczema N Urinary Tract Infection N Abuse/Domestic Violence N Asthma N Trauma/Violence N Depression/ depression N Heart Disease N Pre-Eclampsia N Hypertension N Osteoporosis N Thrombophilias N Gynecological History Statement/Question Response Date of Last Mammogram Date of LMP 05/13/2024 On BCP's at Conception? N Was last menstrual period normal N STIs/STDs N Duration of Flow (days) 7 Current Control Method None Frequency of Cycle (Q days) 7 Sexually Active? Y Date of DEXA bone scan Age of first menstrual cycle 15 Date of Last Pap Smear 07/12/2023 Sexual Problems? N LMP Approximate Obstetrics History GPAL:G 1 P 1 0 0 1 Type Value Full Term 1 Living 1 Total 1 Past Encounters Encounter ID Performer Location Encounter Start Date Encounter Closed Date Diagnosis/Indication Diagnosis SNOMED-CT Code Diagnosis ICD10 Code Diagnosis Note [id number] Ju Conteh [place] [address] [address] 07/21/2022 14:23:26 07/21/2022 16:02:58 Uncertain viability of 073306250 O36.80X0 Z3A.16 [id number] Abby Palemr [place] [address] [address] 07/21/2022 14:23:51 07/21/2022 16:37:02 Amenorrhea 12201698 N91.2 test positive 705641877 Z32.01 Risk factors addressed: Tobacco Cessation, Safe Sexual Practices, environmen nasim, work hazards, travel restrictio ns, seat belt use.Eat a health well balanced diet, avoid alcohol, tobacco, and street drugs.Enga ge in daily low impact exercise, avoid temperatur e extremes, and cat, rodent, and bird feces.Avoi d travel to areas where zika virus is a concern.Of fered cf/sma/nip t. Desires all testing. Will be drawn today. Handouts given and discussed with patient. ildbirth classes recommende d.New OB sheet given.If previous , counseling . Return marlin for new ob and follow up anatomy scan.Pt verbalizes that she understand s the importance of above instructio ns.All questions were answered.P atient reminded to have annual well woman examinatio n and address preventati [facility] . 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 Pt will call us 2 days after imaging to ensure we have received the results and to discuss follow up plan. Gynecologi c examination 92856339 Z01.419 Z11.3 Z11.8 [id number] Ju Conteh [place] [address],[place] [address] 08/02/2022 14:44:16 08/02/2022 17:27:33 screening 684277058 Z36.3 [id number] [facility] [address],[place] [address] 08/02/2022 14:44:56 08/03/2022 17:37:55 Routine care 629259179 Z34.92 [id number] [facility] [address],[place] [address] 08/25/2022 09:23:20 08/25/2022 10:06:44 Routine care 425618974 Z34.92 [id number] Abby Palmer [place] [address],[place] [address] 09/20/2022 11:37:51 09/20/2022 16:22:41 Routine care 316678944 Z34.92 [id number] Abby Palmer [place] [address],[place] [address] 10/04/2022 09:50:07 10/04/2022 10:50:14 Routine care 013406428 Z34.92 [id number] Abby Palmer [place] [address],[place] [address] 10/18/2022 09:31:07 10/18/2022 10:09:48 Routine care 172775122 Z34.92 [id number] Abby Palmer [place] [address],[place] [address] 11/01/2022 09:23:42 11/01/2022 10:35:41 Routine care 473282106 Z34.92 [id number] Christal Romo [facility] [address],[place] [address] 11/18/2022 13:57:23 11/18/2022 14:40:18 Routine care 839641301 Z34.93 [id number] Christal Romo [facility] [address],[place] [address] 11/25/2022 12:16:24 11/25/2022 15:07:06 Routine care 587785844 Z34.93 [id number] Christal Romo [facility] [address],[place] [address] 12/02/2022 11:15:48 12/02/2022 12:30:53 Routine care 234100330 Z34.93 [id number] Christal Romo [facility] [address],[place] [address] 12/09/2022 10:47:21 12/09/2022 11:10:17 Routine care 037275945 Z34.93 [id number] Radha Palm [place] [address],[place] [address] 12/09/2022 11:07:04 12/09/2022 11:37:41 Reduced movement 828629263 O36.8199 [id number] Kirsten Tomas [place] [address],[place] [address] 01/18/2023 12:26:53 01/18/2023 13:48:18 Hemorrhoids 89458953 K64.9 care 77311411 8 Z39.0 [id number] [facility] [address],[place] [address] 07/12/2023 10:58:27 07/12/2023 11:44:55 Gynecologic examination 13408112 Z01.419 discussed effectiven ess will need combinatio n pill when done breastfeed ing [id number] Lyndsey Arias SHYAM [place] [address],[place] [address] 08/15/2023 15:34:46 08/15/2023 16:06:49 Pain in pelvis 36140986 R10.2 This patient is a 22 -year-old female with pelvic pain. We have agreed to complete the evaluation with pelvic ultrasound . The patient will return after the pelvic ultrasound to discuss those findings and to develop a treatment plan. A comprehens ira history and physical exam was performed today. We spent over 25 minutes face-to-fa ce. The patient was given precaution s. She will contact clinic if pelvic pain increases in frequency or intensity. Also notify clinic of any new symptoms associated with pelvic pain. She does not appear to have an acute pelvic infection today, but was asked to contact us Immediatel y with nausea, vomiting, fever, chills. [facility] TC for u/s and f/u [id number] Mana Chung [place] [address],[place] [address] 08/16/2023 09:26:25 08/16/2023 10:02:39 Pain in pelvis 99784246 R10.2 [id number] Lyndsey Arias SHYAM [place] [address],[place] [address] 08/17/2023 16:12:10 08/17/2023 16:35:59 Pain in pelvis 75008612 R10.2 Reviewed updated pelvic u/s - [facility] ed option of pelvic floor physical therapy - she would like to pursue this optionrefe rral placed - number given to pt to schedule Contracept ion care management [id number] Z30.9 Alternativ e progestero ne only methods discusseds he is going to consider her options - would like to use condoms for now Time spent in visit is a total of 20 mins with at least 50% of visit consisting of counseling and review of plan of care. [id number] SAMEER Beard [place] [address],[place] [address] 11/13/2023 11:11:58 11/13/2023 14:41:51 Contraception care management [id number] Z30.9 All progestero ne only methods discusseds he would like to start Depo-Prove rar/b/a reviewedrx sentreturn to clinic with next period for administra tion Depo-Prove ra is a female hormonal method of control. It s very effective in preventing . Depo-Prove ra contains a synthetic (man-made) form of the hormone progestero ne, called depo medroxypro gesterone acetate (DMPA). The Depo-Prove ra injection gives 3 months protectio n against . You should get one injection every 3 months (13 weeks) to get the best protection against . It s safe to get your injection up to 3 weeks earlier if you can t get your next injection in exactly 13 weeks.This will need to be given between 1-7 of next menstrual cycle.Cond oms or other secondary BC method is advised for at least the first 4wks.Possi ble SE's include: Mood changes, AUB, Dizziness, H/A's, bloating, loss of menstrual cycle, weight gain approx 5#'s every year for the first 3yrs, risk of bone density lossDoes not prevent against STD's.Chadd e on this medication recommend increasing calcium in diet & taking calcium daily along with vitamin D daily to prevent bone loss along with regular exercise. Time spent in visit is a total of 35 mins with at least 50% of visit consisting of counseling and review of plan of care. [id number] Mana Chung [place] [address],[place] [address] 02/07/2024 10:57:43 02/07/2024 11:46:55 screening [id number] Z36.87 Z3A.01 [id number] Christal Romo CNM [place] [address],[place] [address] 02/07/2024 10:58:03 02/09/2024 09:13:58 [id number] Anai Barton [place] [address],[place] [address] 02/13/2024 11:03:15 02/13/2024 12:10:35 Uncertain viability of [id number] O36.80X0 Z3A.01 [id number] AXEL QUIÑONEZ MD [place] [address],[place] [address] 02/13/2024 11:03:43 02/13/2024 12:32:48 Threatened miscarriage [id number] O20.0 - suspicious for early loss due to minimal growth over the past 6 days, however not diagnostic - discussed likely miscarriag e with patient as well as management options of expectant vs medical vs surgical management - patient would like to repeat US in 1 week then discuss management options further- bleeding precaution s reviewed [id number] Mana Chung [place] [address],[place] [address] 02/20/2024 12:36:40 02/20/2024 13:13:35 Missed miscarriage [id number] O02.1 Z3A.01 [id number] AXEL QUIÑONEZ MD [place] [address],[place] [address] 02/20/2024 12:38:05 02/22/2024 12:22:20 Missed miscarriage [id number] O02.1 - confirmed on ultrasound today- discussed r/b/a of expectant vs medical vs surgical management ; patient desires medical management - reviewed bleeding precaution s- recommend repeat hCG 1 week after bleeding resolves [id number] Madison Kenny [place] [address],[place] [address] 03/22/2024 14:40:58 03/22/2024 15:25:12 Vaginitis [id number] N76.0 Bacterial vaginosis 4197 19200 N76.0 [id number] Kirsten Tomas [place] [address],[place] [address] 03/26/2024 16:52:35 03/27/2024 10:56:59 Vaginal discharge [id number] N89.8 [id number] AXEL QUIÑONEZ MD [place] [address],[place] [address] 05/20/2024 17:06:37 05/21/2024 16:41:22 Contraception care management [id number] Z30.9 Discussed with patient risks, benefits, and alternativ es of contracept ion. Discussed all options, including natural family planning, condoms, combined oral contracept ramana, contracept ira patch, Nuva-ring, Depo-Prove ra, Nexplanon, intrauteri ne device. Advised that of the above listed options, only condoms can prevent sexually transmitte d infections and that condoms can be used together with any form of contracept ion. Patient has contraindi cations to BC patch due to weight. Patient reports that she has used Nexplanon in the past. After extensive counseling , patient at this time desires Nuvaring. Health Concerns Section Related Observation LastModified by Organization Detai ls LastModified Time None Recorded Concern Status LastModified by Organization Details LastModified Time None Recorded Advance Directives Directive None Recorded Payers Encounter Date Sequence Insurance Name Policy Number Policy Lopez Covered Member ID Lopez Member ID Guarantor Name 02/20/2024 1 [employer] [place] [id number] Corazon Go [id number] Corazon Go 02/20/2024 1 [employer] [place] [id number] 0003 Corazon Go [id number] Corazon Go 03/22/2024 1 [employer] [place] [id number] Corazon Go [id number] Corazon Go 03/26/2024 1 [employer] [place] [id number] 0003 Corazon Go [id number] Corazon Go 05/20/2024 1 [employer] [place] [id number] 0003 Corazon Go [id number] Corazon Go Notes Date Note Type Note Provider Name and Address Organization Details Recorded Time 02/20/2024 text/html Patient presents for follow up of ultrasound concerning for missed miscarriage. Ultrasound today confirms no heart rate over 10 days after yolk sac was seen, consistent with missed miscarriage. Patient denies vaginal bleeding or cramping. Desires medical management AXEL QUIÑONEZ MD [address], [place], [address], [facility] 02/27/2024 23:30:13 05/20/2024 text/html Patient presents for discussion of control options. Has previously used nexplanon with good results however considering becoming a surrogate in a few months, so she would like something until starting her surrogate process. She is unsure of taking pills daily. AXEL QUIÑONEZ MD [address], [place], [address], [facility] 05/20/2024 22:24:52 OBGyn Episode Ob Episode Information Episode Created Date Number of Fetuses Patient Bloodtype Patient rh Status Prepregnancy Weight lbs Domestic Partner Domestic Partner Phone Father Name Market Director Status 08/02/19 23 1 A Positive 151 Anders Magallon CLOSED Fetus Data First Name Last Name Admitted to NICU Weight (g) Sex Living Outcome Pediatric Complications Fetus ID Race Codes Race Delivery Type 3430.28 95 M true Full Term [id number] Vaginal Delivery Problems Problem Notes Problem Name Start Date End Date Resolution Snomed Code Not e Anemia 12/05/2022 MEDICATION [id number] slowfe 1 tab BID Hypoglycemia 09/22/2022 [id number] precau tions given Jose Calculation Initial Jose Date Initial Exam Date Initial Exam Provider Initial Ultrasound Date Last Menstrual Period Date Ultra Sound Weeks Gestation 12/13/2022 07/21/2022 07/21/2022 03/06/2022 19 Eighteen To Twenty Week Jose Update Ultra Sound Date Fundal Height At Umbil Quickening Date Ultra Sound Latest Weeks Gestation Final Jose Confirmed By Final Jose Confirmed Date Final Jose Date Ultra Sound Latest Days Gestation 10/28/19 23 21 12/12/19 23 4 Pre-zana Flowsheet Flowsheet Date 08/02/2022 Vazquez Score Blood Edema Fundus Height Fundus Units Glucose Ketones Leukocytes Nitrite Labor Signs Protein Cervic Dilation Cervic Effacement Cervic Station Type Weight in lbs Pre/Post Dialysis Refused BP Diastolic BP Location Tested BP Systolic BP Type Fetus Heart Rate Present Fetus Movement Comments Flowsheet Date 08/02/2022 Vazquez Score Blood Edema Fundus Height Fundus Units Glucose Ketones Leukocytes Nitrite Labor Signs Protein Cervic Dilation Cervic Effacement Cervic Station neg none none trace Type Weight in lbs Pre/Post Dialysis Refused Weight 155.10005652937 BP Diastolic BP Location Tested BP Systolic BP Type 74 118 Fetus Heart Rate Present Fetus Movement A Yes Comments 21 y/o G1 with a due date of 6-4 here to start routine care. Pt is late to care d/t no insurance until recently. Pt is considering home . If she decides to go that route, she will let us know. We went over hospital folder and care plan. No concerning history except a breast lump. Breast ultrasound scheduled and she will call us 2 days after imaging to ensure we have received and reviewed the results to determine follow up. Flowsheet Date 08/25/2022 Vazquez Score Blood Edema Fundus Height Fundus Units Glucose Ketones Leukocytes Nitrite Labor Signs Protein Cervic Dilation Cervic Effacement Cervic Station neg none 24 none trace Type Weight in lbs Pre/Post Dialysis Refused Weight 161.038382284549 BP Diastolic BP Location Tested BP Systolic BP Type 78 125 Fetus Heart Rate Present A 131 Fetus Movement A Yes Comments Doing well. Having a boy. St ill considering transfer to home . Planning circ. Aware may need to be done with urology if she delivers at home. Encouraged classes and to pick a pedi. Return in 3 weeks for routine visit and gtt. Discussed breast ultrasound. Will schedule consult with breast specialist. Patient case sent. Flowsheet Date 09/20/2022 Vazquez Score Blood Edema Fundus Height Fundus Units Glucose Ketones Leukocytes Nitrite Labor Signs Protein Cervic Dilation Cervic Effacement Cervic Station neg none 28 none trace Type Weight in lbs Pre/Post Dialysis Refused Weight 170.768226151982 BP Diastolic BP Location Tested BP Systolic BP Type 84 139 Fetus Heart Rate Present A 145 Fetus Movement A Yes Comments Doing well. Does have acid r eflux. Has tried tums. Will start plain pepcid daily. Encouraged tdap. Scheduled with breast specialist. Still considering home . Encouraged to call soon. Flowsheet Date 10/04/2022 Vazquez Score Blood Edema Fundus Height Fundus Units Glucose Ketones Leukocytes Nitrite Labor Signs Protein Cervic Dilation Cervic Effacement Cervic Station neg none 29 none trace Type Weight in lbs Pre/Post Dialysis Refused Weight 172.209711273711 BP Diastolic BP Location Tested BP Systolic BP Type 80 127 Fetus Heart Rate Present A 134 Fetus Movement A Yes Comments Doing well. Declined tdap. B reast specialist scheduled on . Encouraged to decide on pedi. Talked about hospital vs home options. Flowsheet Date 10/18/2022 Vazquez Score Blood Edema Fundus Height Fundus Units Glucose Ketones Leukocytes Nitrite Labor Signs Protein Cervic Dilation Cervic Effacement Cervic Station neg none 33 none trace Type Weight in lbs Pre/Post Dialysis Refused Weight 176.300527911515 BP Diastolic BP Location Tested BP Systolic BP Type 80 122 Fetus Heart Rate Present A 139 Fetus Movement A Yes Comments Doing well. No contractions. Had to r/s breast specialist. New josé miguel in November. Pre admit with Clarence scheduled on November 11. Did talk to Stephanie and is undecided on home vs hospital . Flowsheet Date 11/01/2022 Vazquez Score Blood Edema Fundus Height Fundus Units Glucose Ketones Leukocytes Nitrite Labor Signs Protein Cervic Dilation Cervic Effacement Cervic Station neg none 33 none trace Type Weight in lbs Pre/Post Dialysis Refused Weight 181.266249321291 BP Diastolic BP Location Tested BP Systolic BP Type 86 132 Fetus Heart Rate Present A 147 Fetus Movement A Yes Comments Doing well. No contractions. Pre admit scheduled. Plan to return in 2 weeks for routine ob. Flowsheet Date 11/18/2022 Vazquez Score Blood Edema Fundus Height Fundus Units Glucose Ketones Leukocytes Nitrite Labor Signs Protein Cervic Dilation Cervic Effacement Cervic Station neg none none trace 1cm 60% -2 Type Weight in lbs Pre/Post Dialysis Refused Weight 185.116421350837 BP Diastolic BP Location Tested BP Systolic BP Type 90 132 Fetus Heart Rate Present Fetus Movement A Yes Comments patient is having some BH co ntractions and discharge. wants natural, unmedicated . gbs done, precautions reviewed f/u one week Flowsheet Date 11/25/2022 Vazquez Score Blood Edema Fundus Height Fundus Units Glucose Ketones Leukocytes Nitrite Labor Signs Protein Cervic Dilation Cervic Effacement Cervic Station neg none 37 none trace Type Weight in lbs Pre/Post Dialysis Refused Weight 188.496461061439 BP Diastolic BP Location Tested BP Systolic BP Type 85 128 Fetus Heart Rate Present A 157 Present Fetus Movement A Yes Comments patient is having some BH co ntractions and discharge. declined cervical exam, labor precautions f/u one week Flowsheet Date 12/02/2022 Vazquez Score Blood Edema Fundus Height Fundus Units Glucose Ketones Leukocytes Nitrite Labor Signs Protein Cervic Dilation Cervic Effacement Cervic Station neg none none trace Type Weight in lbs Pre/Post Dialysis Refused Weight 190.483727210190 BP Diastolic BP Location Tested BP Systolic BP Type 96 158 72 138 Fetus Heart Rate Present Fetus Movement A Yes Comments patient states that having s ome BH contractions, normal discharge, swelling, nausea and vomiting. denies coulter, visual changes, epigastric pain, check labs, was vomiting prior to arrival, labor precautions cervix FT/70/soft Flowsheet Date 12/09/2022 Vazquez Score Blood Edema Fundus Height Fundus Units Glucose Ketones Leukocytes Nitrite Labor Signs Protein Cervic Dilation Cervic Effacement Cervic Station neg none none trace Type Weight in lbs Pre/Post Dialysis Refused Weight 192.861006021315 BP Diastolic BP Location Tested BP Systolic BP Type 82 123 Fetus Heart Rate Present Fetus Movement A Yes Comments patient states that having s ome BH contractions, swelling and nausea. wants IOL plan nst bpp next week, declines cervical exam, plan IOL /7 at 0600, precautions reviewed, nst today for decreased movement Flowsheet Date 12/09/2022 Vazquez Score Blood Edema Fundus Height Fundus Units Glucose Ketones Leukocytes Nitrite Labor Signs Protein Cervic Dilation Cervic Effacement Cervic Station Type Weight in lbs Pre/Post Dialysis Refused BP Diastolic BP Location Tested BP Systolic BP Type Fetus Heart Rate Present Fetus Movement Comments Flowsheet Date 12/09/2022 Vazquez Score Blood Edema Fundus Height Fundus Units Glucose Ketones Leukocytes Nitrite Labor Signs Protein Cervic Dilation Cervic Effacement Cervic Station Type Weight in lbs Pre/Post Dialysis Refused BP Diastolic BP Location Tested BP Systolic BP Type Fetus Heart Rate Present Fetus Movement Comments Menstrual History Last Menstrual Date Menses Monthly On Bcp Conception Prior Menses Frequency Hcg Plus Date Menarche Onset Age 0803/06/2022 Genetic Screening And Infection History Question Response Note Mental Retardation/Autism false Patient's Age Will Be 35 Yea rs Or Older At Estimated Date of Delivery false Thalassemia (Frisian, Armenian, Mediterranean, Or Background): MCV < 80 false Neural Tube Defect (Meningom yelocele, Spina Bifida, Or Anencephaly) false Congenital Heart Defect false Down Syndrome false [place]-Sachs (eg, Orthodox, Cajun, Uzbek-[place]) f alse Isaías Disease false Sickle Cell Disease Or Trait () false Hemophilia Or Other Blood Disorders false Muscular Dystrophy false Cystic Fibrosis false [place]'s Chorea false Intellectual Disability/Autism false If Yes, Was Person Tested For Fragile X? false Other Inherited Genetic Or Chromosomal Disorder false Maternal Metabolic Disorder (eg, Type 1 Diabetes, PKU) false Patient Or Baby's Father Had A Child With Defects Not Listed Above false Recurrent Loss, Or A Stillbirth true Tylenol prn daily Medications (including Suppl ements, Vitamins, Herbs, OTC Drugs), Illicit/Recreational Drugs, Alcohol false If Yes, Agent(s) And Strength/Dosage false Any Other Genetic History false Live With Someone With TB Or Exposed To TB false Patient Or Partner Has History Of Genital Herpes false Rash Or Viral Illness Since Last Menstrual Perio d false History Of STD, Gonorrhea, C hlamydia, HPV, Syphilis false Other Infection History false History of HIV false History of Hepatitis false Prior GBS-infected child false Hemoglobinopathy Or Carrier false Other Structural Defect false Recent Travel History Outside of Country false Delivery Information Delivery Date Delivery Type Labor Anesthesia Weeks Gestation Incision Type Labor Labor Length Hrs Delivered By Post Complications Tubal Sterilization Discharge Date Comments 3 Induce d [facility] id[facility] 40.1 false Christal Romo CNM anemia, hypoglyce avelina Discharge Information Feeding Method Contraceptive Method Maternal HG B and HCT Levels
--- OUTSIDE RECORDS SUMMARY | 2024-09-22 13:09 | XMS_ITS | Referral Summary ---
Author Organization [facility] [employer] Address [address] [place] [address] Care Team Providers Care Marine Transport Professionals Name Role Phone Paradise Kingsley MD Primary Care Provider [phone] Source Comments [facility],non-owned Affiliates and Associated Physician Practices is amultiple site organization consisting of ambulatory clinics and hospital sitesin [place], [place], [place] and [place]. This disclosure is being madepursuant to the Care Everywhere program and may not contain all information available regarding this patient. Last updated 18.[facility] [employer] Allergies Active Allergy Reactions Criticality Noted Date Comments Bee Venom Other 06/18/2015 Localized swelling Medications * Be aware that medications may not be up to date on this document. Alwaysverify current medications with the patient. Medication Sig Dispensed Refills Start Date End Date Status diphenhydrAMINE (BENADRYL) 25 MG capsule Take 25 mg by mouth every 4 hours as needed for Itching Active tretinoin (RETIN-A) 0.05 % cream Apply to affected area at bedtime 45 g 2 05/26/2017 Active Active Problems Problem Noted Date Diagnosed Date Acne 05/26/2017 Overview (05/26/2017): Onset age 15, menses at age 13, now regular with no notable flares with cycle, denies cystic lesions; prior use of BP products; Dad with h/o acne, not severe 05/26/17: Rx tretinoin Skin eruption 06/18/2015 Overview (05/26/2017): 06/18/15 localized ACD vs psoriasis vs LP; 6 wk trial empiric clobetasol + wet wraps. If not improved, RTC >2 wk off tx for biopsy 05/26/17 resolved Social History Tobacco Use Types Packs/Day Years Used Date Smoking Tobacco: Never Assessed Sex and Gender Information Value Date Recorded Sex Assigned at Not on file Gender Identity Not on file Sexual Orientation Not on file Last Filed Vital Signs Vital Sign Reading Time Taken Comments Blood Pressure - - Pulse - - Temperature - - Respiratory Rate - - Oxygen Saturation - - Inhaled Oxygen Concentration - - Weight 64.6 kg (142 lb 6.7 oz) 05/26/2017 3:27 P M POULTRY SCALDER Height 164.4 cm (5' 4.72 ) 05/26/2017 3:27 PM CS T Body Mass Index 23.9 05/26/2017 3:27 PM POULTRY SCALDER Plan of Treatment Not on file Care Teams Marine Transport Professionals Relationship Specialty Start Date End Date Paradise Kingsley MD [address] [place] [address] PCP - General Pediatrics 05/26/17
--- OUTSIDE RECORDS SUMMARY | 2024-09-22 13:09 | XMS_ITS | Referral Summary ---
Author Organization [facility] Address [address] [place] [address] Care Team Providers Care Microarray Analyst Name Role Phone Abby Palmer AIR CARRIER OPERATIONS INSPECTOR Unavailable Soha Clifton NP Primary Care Provider [phone] Allergies Active Allergy Reactions Criticality Noted Date [...] on file Legal Sex Female 4:20 AM IN HOME NANNY Gender Identity Not on file Sexual Orientation Not on file Last Filed Vital Signs Vital Sign Reading Time Taken Comments Blood Pressure 122/76 09/08/2023 2:15 PM IN HOME NANNY Pulse 123 10/07/2023 4:46 PM CDT Temperature [...] 10/07/2023 4:46 PM CDT Plan of Treatment Not on file Insurance [facility] Care Teams Microarray Analyst Relationship Specialty Start Date End Date Soha Clifton NP [address] [place] [address] PCP - General Internal Medicine 09/08/23 Abby Palmer NP [address] [place] [address] Referring Physician Nurse Practitioner 08/25/22
--- OUTSIDE RECORDS SUMMARY | 2024-09-22 13:09 | XMS_ITS | Patient Health Summary ---
Author Organization [facility] Address [address] [place] [address] Care Team Providers Care Recruiting Associate Name Role Phone Paradise Kingsley MD Primary Care Provider [phone] Note from [facility],non-owned Affiliates and Associated Physician Practices is amultiple site organization consisting of ambulatory clinics and hospital sitesin [place], [place], [place] and [place]. This disclosure is being madepursuant to the Care Everywhere program and may not contain all information available regarding this patient. Last updated 18.[facility] [email or web address] Allergies * Bee Venom(Other) Medications * Be aware that medications may not be up to date on this document. Alwaysverify current medications with the patient. * diphenhydrAMINE (BENADRYL) 25 MG capsule Take 25 mg by mouth every 4 hours as needed for Itching * tretinoin (RETIN-A) 0.05 % cream(Started 05/26/2017) Apply to affected area at bedtime 2 refills remaining Active Problems Problem Noted Date Diagnosed Date Acne 05/26/2017 Skin eruption 06/18/2015 Social History Tobacco Use Types Packs/Day Years [...] lb 6.7 oz) 05/26/2017 3:27 P M WARRANTY MANAGER Height 164.4 cm (5' 4.72 ) 05/26/2017 3:27 PM CS T Body Mass Index 23.9 05/26/2017 3:27 PM WARRANTY MANAGER Care Teams Recruiting Associate Relationship Specialty Start Date End Date Paradise Kingsley MD [address] [place] [id number] PCP - General Pediatrics 05/26/17
--- OUTSIDE RECORDS SUMMARY | 2024-09-22 13:09 | XMS_ITS | Clinical Summary ---
Author Organization [facility] [employer] Address [address] [place] [address] Care Team Providers Care Motor Vehicle Licence Examiner Name Role Phone Paradise Kingsley MD Primary Care Provider [phone] Source Comments [facility],non-owned Affiliates and Associated Physician Practices is amultiple site organization consisting of ambulatory clinics and hospital sitesin [place], [place] and [place]. This disclosure is being madepursuant to the Care Everywhere program and may not contain all information available regarding this patient. Last updated 18.[facility] [employer] Allergies Active Allergy Reactions Criticality Noted Date [...] wk off tx for biopsy 05/26/17 resolved Family History Medical History Relation Name Comments Diabetes Father Relation Name Status Comments Father Social History Tobacco Use Types Packs/Day Years [...] lb 6.7 oz) 05/26/2017 3:27 P M FAST FOOD MANAGER Height 164.4 cm (5' 4.72 ) 05/26/2017 3:27 PM CS T Body Mass Index 23.9 05/26/2017 3:27 PM FAST FOOD MANAGER Plan of Treatment Health Maintenance Due Date Last Done Comments PAP SMEAR 2000 HIV SCREENING 10/28/2015 HPV VACCINE (1 - 3-dose series) 10/28/2015 CHLAMYDIA/GONORRHEA SCREENING 2016 MENINGOCOCCAL (Group B) VACC INE SHARED DECISION-MAKING (1 of 2 - Standard) 2016 HEPATITIS C SCREENING 10/23/2018 DTAP/TDAP/TD VACCINES (1 - Tdap) 10/28/2019 HEPATITIS B VACCINE (1 of 3 - 19+ 3-dose series) 10/28/2019 COVID-19 VACCINE (1 - 2023-2 5 season) 2024 INFLUENZA VACCINE (#1) 2024 DEPRESSION SCREENING 07/10/2024 ZOSTER VACCINE (1 of 2) 2050 HIB VACCINE Aged Out No longer eligi ble based on patient's age to complete this topic MENINGOCOCCAL GROUPS A/C/Y/W VACCINE Aged Out No longer eligible b ased on patient's age to complete this topic PNEUMOCOCCAL VACCINE Aged Out No long er eligible based on patient's age to complete this topic Care Teams Motor Vehicle Licence Examiner Relationship Specialty Start Date End Date Paradise Kingsley MD [address] [place] [address] PCP - General Pediatrics 05/26/17
[2024-09-22 13:16] VITALS: BP 153/95; PULSE 138; RESP 18; TEMP 36.8; O2SAT 98
--- OUTSIDE RECORDS SUMMARY | 2024-09-22 14:15 | XMS_ITS | Clinical Summary ---
Author Organization [facility] Address [address] [place] [address] Care Team Providers Care Embossed Or Impressed Lettering Painter Name Role Phone Estela Abby HOWE Unavailable Soha Clifton NP Primary Care Provider [phone] Allergies Active Allergy Reactions Criticality Noted Date [...] on file Legal Sex Female 4:20 AM DOUBLE NEEDLE STITCHER Gender Identity Not on file Sexual Orientation Not on file Obstetrics History Last Filed Vital Signs Vital Sign Reading Time Taken Comments Blood Pressure 122/76 09/08/2023 2:15 PM DOUBLE NEEDLE STITCHER Pulse 123 10/07/2023 4:46 PM CDT Temperature [...] patient's age to complete this topic Insurance [facility] Care Teams Embossed Or Impressed Lettering Painter Relationship Specialty Start Date End Date Soha Clifton NP [address] [place], [place] [id number] PCP - General Internal Medicine 09/08/23 Abby Palmer NP [address] [place] [address] Referring Physician Nurse Practitioner 08/25/22
--- OUTSIDE RECORDS SUMMARY | 2024-09-22 14:15 | XMS_ITS | Clinical Summary ---
Author Organization [facility] Address [address] [place] [address] Care Team Providers Care Teamsite Developer Name Role Phone Paradise Kingsley MD Primary Care Provider [phone] Source Comments [facility],non-owned Affiliates and Associated Physician Practices is amultiple site organization consisting of ambulatory clinics and hospital sitesin [place], [place], [place] and [place]. This disclosure is being madepursuant to the Care Everywhere program and may not contain all information available regarding this patient. Last updated 18.[facility] Allergies Active Allergy Reactions Criticality Noted Date [...] lb 6.7 oz) 05/26/2017 3:27 P M FUNCTIONAL CONSULTANT Height 164.4 cm (5' 4.72 ) 05/26/2017 3:27 PM CS T Body Mass Index 23.9 05/26/2017 3:27 PM FUNCTIONAL CONSULTANT Plan of Treatment Health Maintenance Due Date [...] age to complete this topic Care Teams Teamsite Developer Relationship Specialty Start Date End Date Paradise Kingsley MD [address] [place] [address] PCP - General Pediatrics 05/26/17
--- OUTSIDE RECORDS SUMMARY | 2024-09-22 14:15 | XMS_ITS | Referral Summary ---
Author Organization [facility] Address [address] [place] [address] Care Team Providers Care Finish Mender Name Role Phone Paradise Kingsley MD Primary Care Provider [phone] Source Comments [facility],non-owned Affiliates and Associated Physician Practices is amultiple site organization consisting of ambulatory clinics and hospital sitesin [place], [place], [place] and [place]. This disclosure is being madepursuant to the Care Everywhere program and may not contain all information available regarding this patient. Last updated 18.[facility] Allergies Active Allergy Reactions Criticality Noted Date [...] lb 6.7 oz) 05/26/2017 3:27 P M PRODUCT MANUFACTURING PROFESSIONAL Height 164.4 cm (5' 4.72 ) 05/26/2017 3:27 PM CS T Body Mass Index 23.9 05/26/2017 3:27 PM PRODUCT MANUFACTURING PROFESSIONAL Plan of Treatment Not on file Care Teams Finish Mender Relationship Specialty Start Date End Date Paradise Kingsley MD [address] [place] [address] PCP - General Pediatrics 05/26/17
--- OUTSIDE RECORDS SUMMARY | 2024-09-22 14:15 | XMS_ITS | Encounter Summary ---
Author Organization [facility] Address [address] [place] [address] Phone Care Team Providers Care Industrial Green Systems Designer Name Role Phone No, Physician Primary Care Provider [phone] Yamile Asif NP Primary Care Provider [phone] Abby Palmer TWISTING MACHINE OPERATOR Unavailable Soha Clifton TWISTING MACHINE OPERATOR Primary Care Provider [phone] Encounter Details Date Type Department Care Team (Latest Contact Info) Description 07/04/2019 Orders Only [facility] Scanning, Provider Social History Tobacco Use Types Packs/Day Years Used Date Smoking Tobacco: Never Comments Unknown Sex and Gender Information Value Date Recorded Sex Assigned at Not on file Legal 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
--- OUTSIDE RECORDS SUMMARY | 2024-09-22 14:15 | XMS_ITS | Patient Health Summary ---
Author Organization [facility] Address [address] [place] [address] Care Team Providers Care Deoiling Machine Operator Name Role Phone Paradise Kingsley MD Primary Care Provider [phone] Note from [facility],non-owned Affiliates and Associated Physician Practices is amultiple site organization consisting of ambulatory clinics and hospital sitesin [place], [place], [place] and [place]. This disclosure is being madepursuant to the Care Everywhere program and may not contain all information available regarding this patient. Last updated 18.[facility] Allergies * Bee Venom(Other) Medications * Be [...] lb 6.7 oz) 05/26/2017 3:27 P M WIRE WEAVER Height 164.4 cm (5' 4.72 ) 05/26/2017 3:27 PM CS T Body Mass Index 23.9 05/26/2017 3:27 PM WIRE WEAVER Care Teams Deoiling Machine Operator Relationship Specialty Start Date End Date Paradise Kingsley MD [address] [place] [id number] PCP - General Pediatrics 05/26/17
--- OUTSIDE RECORDS SUMMARY | 2024-09-22 14:15 | XMS_ITS | Referral Summary ---
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 Gender Identity Not on file Sexual Orientation Not on file Last Filed Vital Signs Vital Sign Reading Time Taken Comments Blood Pressure 122/76 09/08/2023 2:15 PM PROFESSOR OF ENVIRONMENTAL ENGINEERING Pulse 123 10/07/2023 4:46 PM CDT Temperature [...] Plan of Treatment Not on file Insurance [facility] Care Teams Retail Brand Ambassador Relationship Specialty Start Date End Date Soha Clifton NP [address] [place] [address] PCP - General Internal Medicine 09/08/23 Abby Palmer NP [address] [place] [address] Referring Physician Nurse Practitioner 08/25/22
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
[2024-09-22 15:08] VITALS: BP 130/67; PULSE 85; RESP 15; O2SAT 100
== END 2024-09-22 15:31 | disposition home or self-care (01) ==
PROVIDERS: Emergency Provider Physician Assistant; PCP Family Medicine
DX: S09.90XA Unspecified injury of head, initial encounter (principal); V89.2XXA Person injured in unspecified motor-vehicle accident, traffic, initial encounter; W22.10XA Striking against or struck by unspecified automobile airbag, initial encounter; Z87.891 Personal history of nicotine dependence
CPT/HCPCS: 70450; 70486; 72125; 99284